=== PATIENT | female | born 1995 | race Caucasian/White ===

== ENCOUNTER 2021-03-12 22:26 | Emergency (ER) | payer OTHER, SELFPAY ==
[2021-03-12 22:30] VITALS: BP 129/70; PULSE 94; RESP 16; TEMP 36.4; O2SAT 100
[2021-03-12] MEDS: SODIUM CHLORIDE 0.9% IV 1,000 ML 999 ML IV CONT (23:17)
[2021-03-12 23:54] LABS: Add Urine Microscopic? YES; Appearance Urine Cloudy (Clear); Bacteria Urine Trace /hpf; Bilirubin Urine Negative (Negative); Blood Urine Negative (Negative); Color Urine Yellow (Yellow); Glucose Urine UA Negative (Negative); Ketones Urine Negative (Negative); Leukocyte Esterase Ur Negative LEU/UL (Negative); Mucus Urine Rare /lpf; Nitrate Urine Negative (Negative); Protein Urine Negative (Negative); RBC Urine 0-2 /hpf (0-2); Specific Grav Ur 1.015 (1.001-1.035); Squamous Epithelial Cell Urine Many /hpf (Few)
--- NOTE | 2021-03-13 00:43 | ED.GENADULT ---
HPI - General Adult General Chief complaint: Abdominal Pain Stated complaint: Abd cramping, 12 weeks preg Time Seen by Provider: 03/12/21 22:38 History of Present Illness HPI narrative: Patient is a 25-year-old female who is 12 weeks who presents with lower abdominal cramping. No leakage of fluid or vaginal bleeding. Denies urinary frequency urgency or dysuria. Reports cramping started this evening. She sees Dr. Mane. Concerned it could be related to the . Related Data Home Medications Medication Instructions Recorded Confirmed nitrofurantoin monohyd/m-cryst 110 mg PO BID 03/12/21 03/12/21 [Macrobid] Allergies Allergy/AdvReac Type Severity Reaction Status Date / Time amoxicillin Allergy Unknown Verified 03/12/21 22:33 Review of Systems Gastrointestinal: Gastrointestinal: Denies nausea and Denies vomiting Genitourinary: Genitourinary: Denies abnormal vaginal bleeding, Denies dysuria, Reports pelvic pain and Denies vaginal discharge PMF Past Medical History Medical History (Updated 03/13/21 @ 00:46 by Christian Lorenzo MD) Healthy female adult Surgical History Surgical History (Updated 03/13/21 @ 00:45 by Christian Lorenzo MD) No history of previous surgery Social History Social History (Updated 03/13/21 @ 00:45 by Christian Lorenzo MD) Alcohol intake: never Gender identity (if verbalized by the patient): Female Exam Narrative: Exam Narrative: GENERAL: Well-appearing, well-nourished, and in no acute distress. HEAD: Normocephalic, atraumatic. CHEST: Clear to auscultation. No respiratory distress. HEART: Regular rate and rhythm. Normal peripheral pulses. ABDOMEN: Soft, nontender, nondistended. EXTREMITIES: Normal range of motion. No edema. NEURO: Alert and oriented x3. PSYCH: Normal mood and affect. Course Course Emergency Course: Patient informed of results. Resting comfortably. Bedside ultrasound shows IUP with vigorous movement and positive heart tones. Cramping improved with fluids. Vital Signs Vital signs: Vital Signs Temperature 97.6 F 03/12/21 22:30 Pulse Rate 94 03/12/21 22:30 Respiratory Rate 16 03/12/21 22:30 Blood Pressure 129/70 03/12/21 22:30 Pulse Oximetry 100 03/12/21 22:30 Temperature 97.6 F 03/12/21 22:30 Pulse Rate 94 03/12/21 22:30 Respiratory Rate 16 03/12/21 22:30 Blood Pressure 129/70 03/12/21 22:30 Pulse Oximetry 100 03/12/21 22:30 Medical Decision Making Vital Signs Vital Signs: Vital Signs Temperature 97.6 F 03/12/21 22:30 Pulse Rate 94 03/12/21 22:30 Respiratory Rate 16 03/12/21 22:30 Blood Pressure 129/70 03/12/21 22:30 Pulse Oximetry 100 03/12/21 22:30 Temperature 97.6 F 03/12/21 22:30 Pulse Rate 94 03/12/21 22:30 Respiratory Rate 16 03/12/21 22:30 Blood Pressure 129/70 03/12/21 22:30 Pulse Oximetry 100 03/12/21 22:30 Lab Data Labs: Lab Results 03/12/21 Range/Units 23:43 Urine Color Yellow (Yellow) Urine Appearance Cloudy H (Clear) Urine pH 7.0 (5.0-9.0) Ur Specific [place] 1.015 (1.001-1.035) Urine Protein Negative (Negative) mg/dL Urine Glucose (UA) Negative (Negative) mg/dL Urine Ketones Negative (Negative) mg/dL Ur Blood (Man) Negative (Negative) Urine Nitrate Negative (Negative) Urine Bilirubin Negative (Negative) Urine Urobilinogen 2.0 H (<2.0) mg/dL Leukocyte Esterase Rfl Negative (Negative) BINDU/UL Urine RBC 0-2 (0-2) /hpf Urine WBC 4-6 H /hpf Ur Squamous Epith Cells Many H (Few) /hpf Urine Bacteria Trace /hpf Urine Mucus Rare /lpf UCG Bedside Result Positive Reference Range: Negative Discharge Plan Discharge Clinical Impression: Pelvic cramping Patient Disposition: Home, Self-Care Condition: Stable Instructions: Pelvic Pain (ED) Additional Instructions: Make sure to sta
[2021-03-13 00:54] VITALS: BP 123/76; PULSE 78; RESP 16; TEMP 36.8; O2SAT 98
== END 2021-03-13 00:55 | disposition home or self-care (01) ==
PROVIDERS: Emergency Provider Emergency Medicine; PCP Obstetrics & Gynecology
DX: R10.2 Pelvic and perineal pain (principal); O99.891 Other specified diseases and conditions complicating pregnancy; Z3A.12 12 weeks gestation of pregnancy
CPT/HCPCS: 81001; 81025; 96360; 99283; J7030

== ENCOUNTER 2021-06-17 10:34 | Observation (INO) | payer OTHER, SELFPAY ==
--- NOTE | ~2021-06-17 | US_ITS ---
EXAMINATION: US OB limited w BPP DATE: 06/17/2021 11:51 CDT INDICATION: Amniotic fluid leaking. Decreased movements. TECHNIQUE: Real-time transabdominal obstetric ultrasound. FINDINGS: No prior studies for comparison. There is a single living fetus in vertex presentation. The placenta is anterior without placenta pre via. RAMONA is normal measuring 19.7 cm. cardiac activity and movement is noted with a heart rate of 131 beats per minute. Biophysical profile: breathin of 2 movement: 2 of 2 tone: 2 of 2 Amniotic flud pocket: 2 of 2 Total score: 8 of 8 IMPRESSION: 1. Single living intrauterine in vertex presentation. 2: Total biophysical profile score of 8/8. 3: Normal RAMONA measures 19.7 cm. Reviewed, dictated and finalized at location A.
[2021-06-17 11:08] VITALS: BP 112/75; PULSE 96
[2021-06-17 11:17] VITALS: BMI 26.2
--- NOTE | 2021-06-17 11:17 | OBADM ---
This patient, Lupe Mae, admitted to the OB room OB Post 116 for observation. Patient/family oriented to hospital policies and general routines including ID bracelet, bed and alarms, visiting hours, pain management, procedures, bathroom and other care routines, personal items, smoking policy, room service/diet, and visiting hours. Patient/Family are encouraged to report perceived risks to care and to ask questions if they do not understand what they are told or what they should do.
[2021-06-17 12:00] LABS: Add Urine Microscopic? YES; Amorphous Sediment Urine Few; Appearance Urine Cloudy (Clear); Bacteria Urine Trace /hpf; Bilirubin Urine Negative (Negative); Blood Urine Negative (Negative); Color Urine Yellow (Yellow); Glucose Urine UA Negative (Negative); Ketones Urine Negative (Negative); Leukocyte Esterase Ur 2+ LEU/UL (Negative); Mucus Urine Rare /lpf; Nitrate Urine Negative (Negative); Protein Urine Negative (Negative); Specific Grav Ur 1.011 (1.001-1.035); Squamous Epithelial Cell Urine Many /hpf (Few); Urobilinogen Urine Negative mg/dL (<2.0)
--- NOTE | 2021-06-17 14:42 | PM.OBTRLD ---
OB - Triage/Final Diagnosis Visit Information Comments/Additional reasons for admission: I have assessed the risk for this patient, Lupe Mae, and determined that she would benefit from observation care. Evaluation Laboratory results: Laboratory Tests 06/17/21 11:07 Urine Color Yellow Urine Appearance Cloudy H Urine pH 7.0 Ur Specific [place] 1.011 Urine Protein Negative Urine Glucose (UA) Negative Urine Ketones Negative Ur Blood (Man) Negative Urine Nitrate Negative Urine Bilirubin Negative Urine Urobilinogen Negative Leukocyte Esterase Rfl 2+ H Urine RBC 3-5 H Urine WBC 4-6 H Ur Squamous Epith Cells Many H Amorphous Sediment Few H Urine Bacteria Trace Urine Mucus Rare Vital signs: Vital Signs - 24 hr 06/17/21 11:08 Pulse Rate 96 Blood Pressure 112/75 Final Diagnosis (1) Vaginal discharge during : Code(s): O26.899 - Other specified related conditions, unspecified trimester; N89.8 - Other specified noninflammatory disorders of vagina Status: Acute
== END 2021-06-17 12:15 | disposition home or self-care (01) ==
PROVIDERS: Admitting Provider Obstetrics & Gynecology; Visit Provider Obstetrics & Gynecology
DX: O26.892 Other specified pregnancy related conditions, second trimester (principal); N89.8 Other specified noninflammatory disorders of vagina; Z3A.24 24 weeks gestation of pregnancy
CPT/HCPCS: 76815; 76819; 81001; G0378; G0379

== ENCOUNTER 2021-06-20 10:35 | Outpatient (CLI) | payer OTHER, SELFPAY ==
--- NOTE | ~2021-06-20 | MR_ITS ---
EXAMINATION: MR pelvis wo con DATE: 06/20/2021 11:31 INDICATION: Bicornuate uterus affecting . TECHNIQUE: Magnetic resonance imaging (MRI) of the pelvis was performed without intravenous contrast. [place]field sequences of the pelvis included axial and coronal T2-weighted SS FSE, coronal 2D FIESTA, axial T1-weighted FSPGR, axial dual-echo T1-weighted FSPGR and axial T1 weighted LAVA. Small field o f view sequences included axial, sagittal and coronal T2-weighted FSE centered on the uterus and adne xa. COMPARISON: None. FINDINGS: Gravid uterus with single fetus in breech position. Diffuse is not diagnostically evaluated but appea rs unremarkable. Anterior placenta which is not low-lying with caudal margin 5 cm from the internal c ervical os. Normal cervical length of 3.8 cm. Only a single cervix is identified. No second uterine h orn identified. Bilateral kidneys are unremarkable with no hydronephrosis. Partially decompressed brigido dder is normal. Bilateral ovaries are unremarkable. Visualized portions of the liver, spleen and gabriel ls are unremarkable. No free fluid in the pelvis. No pathologically enlarged pelvic or inguinal lymph adenopathy. There is magnetic metallic field artifact at the upper lumbar and visualized lower thorac ic spine with appearance suggesting bilateral vertical cristi and pedicle screw fixation for posterior s gloria fusion extending from at least T11-L2. Bone marrow signal is unremarkable. IMPRESSION: 1. Gravid uterus with single fetus in breech position. 2. Uterus and cervix appear normal with no evident didelphys or other uterine developmental abnormali ty. Reviewed, dictated and finalized at location A. IMPRESSION: 1. Gravid uterus with single fetus in breech position. 2. Uterus and cervix appear normal with no evident didelphys or other uterine d evelopmental abnormality.
== END 2021-06-20 10:36 | disposition home or self-care (01) ==
LOC: ANHIMG 10:40
PROVIDERS: PCP Obstetrics & Gynecology Obstetrics; Visit Provider Obstetrics & Gynecology Obstetrics
DX: Q51.818 Other congenital malformations of uterus (principal)
CPT/HCPCS: 72195

== ENCOUNTER 2021-07-01 12:42 | Observation (INO) | payer OTHER, SELFPAY ==
--- NOTE | 2021-07-01 12:42 | OBADM ---
This patient, Lupe Mae, admitted to the OB room OB Post 111 for observation. Patient/family oriented to hospital policies and general routines including ID bracelet, bed and alarms, visiting hours, pain management, procedures, bathroom and other care routines, personal items, smoking policy, room service/diet, and visiting hours. Patient/Family are encouraged to report perceived risks to care and to ask questions if they do not understand what they are told or what they should do.
[2021-07-01 13:14] VITALS: BP 124/64; PULSE 98
[2021-07-01 13:29] VITALS: BP 115/65; PULSE 108
[2021-07-01 13:44] VITALS: BP 115/75; PULSE 103
--- NOTE | 2021-07-01 13:45 | PC.NURSE ---
Called Dr. Mane with pt status. Informed of pt complaining of pain on both sides of abdomen that gets tight. Abdomen palpated and fundus is soft. Side of abdomen feels tight occasionally. Pt states that she was not feeling movement, but now feels good movement. Pt has felt the tightening 3 times in 50 mins. Reactive tracing noted. Orders received.
[2021-07-01 14:26] LABS: Add Urine Microscopic? YES; Appearance Urine Cloudy (Clear); Bacteria Urine Trace /hpf; Bilirubin Urine Negative (Negative); Blood Urine Negative (Negative); Color Urine Yellow (Yellow); Glucose Urine UA Negative (Negative); Ketones Urine Negative (Negative); Leukocyte Esterase Ur 2+ LEU/UL (NEGATIVE); Mucus Urine Rare /lpf; Nitrate Urine Negative (Negative); Protein Urine Negative (Negative); Specific Grav Ur 1.008 (1.001-1.035); Squamous Epithelial Cell Urine Many /hpf (Few)
--- NOTE | 2021-07-01 14:30 | PC.NURSE ---
Called Dr. Mane with UA results. Orders received and pt may be D/C's home.
--- NOTE | 2021-07-01 14:49 | P.PNOB_ITS ---
OB - Triage/Final Diagnosis Visit Information Comments/Additional reasons for admission: I have assessed the risk for this patient, Lupe Mae, and determined that she would benefit from observation care. Evaluation Laboratory results: Laboratory Tests 07/01/21 14:05 Urine Color Yellow Urine Appearance Cloudy H Urine pH 7.0 Ur Specific [place] 1.008 Urine Protein Negative Urine Glucose (UA) Negative Urine Ketones Negative Ur Blood (Man) Negative Urine Nitrate Negative Urine Bilirubin Negative Urine Urobilinogen 2.0 H Ur Leukocyte Esterase 2+ H Urine RBC 3-5 H Urine WBC 10-15 H Ur Squamous Epith Cells Many H Urine Bacteria Trace Urine Mucus Rare Vital signs: Vital Signs - 24 hr 07/01/21 13:14 07/01/21 13:29 07/01/21 13:44 Pulse Rate 98 108 H 103 H Blood Pressure 124/64 115/65 115/75 Final Diagnosis (1) Pelvic pain affecting : Code(s): O26.899 - Other specified related conditions, unspecified trimester; R10.2 - Pelvic and perineal pain Status: Acute
[2021-07-01 15:39] VITALS: BMI 25.7
== END 2021-07-01 14:55 | disposition home or self-care (01) ==
PROVIDERS: Admitting Provider Obstetrics & Gynecology; PCP Obstetrics & Gynecology Obstetrics; Visit Provider Obstetrics & Gynecology
DX: O26.893 Other specified pregnancy related conditions, third trimester (principal); R10.2 Pelvic and perineal pain; Z3A.28 28 weeks gestation of pregnancy
CPT/HCPCS: 81001; 87077; 87086; 87088; 87186; G0378; G0379

== ENCOUNTER 2021-07-28 09:56 | Observation (INO) | payer OTHER, SELFPAY ==
[2021-07-28 10:11] VITALS: BP 126/76; PULSE 108
[2021-07-28 10:15] VITALS: BP 116/73; PULSE 106
[2021-07-28 10:30] VITALS: BP 117/69; PULSE 108
[2021-07-28 10:47] LABS: Add Urine Microscopic? YES; Appearance Urine Cloudy (Clear); Bacteria Urine Trace /hpf; Bilirubin Urine Negative (Negative); Blood Urine Negative (Negative); Color Urine Yellow (Yellow); Glucose Urine UA Negative (Negative); Ketones Urine Negative (Negative); Leukocyte Esterase Ur Negative LEU/UL (NEGATIVE); Nitrate Urine Negative (Negative); Protein Urine Negative (Negative); RBC Urine 0-2 /hpf (0-2); Specific Grav Ur 1.005 (1.001-1.035); Squamous Epithelial Cell Urine Occasional /hpf (Few); WBC Urine 0-3 /hpf (0-3)
--- NOTE | 2021-07-28 11:19 | PC.NURSE ---
called,informed pt came in c/o vaginal swelling and pressure. pt states she felt contractions yesterday and some today, none noted on monitor. UA is negative and vaginal swelling is noted as mild bilateral labial swelling with no redness. Orders received to discharge pt home.
[2021-07-28 11:26] VITALS: TEMP 36.9
--- NOTE | 2021-07-30 11:58 | P.PNOB_ITS ---
OB - Triage/Final Diagnosis Visit Information Reason for evaluation: threatened labor Comments/Additional reasons for admission: I have assessed the risk for this patient, Lupe Mae, and determined that she would benefit from observation care. Evaluation Laboratory results: Laboratory Tests 07/28/21 10:31 Urine Color Yellow Urine Appearance Cloudy H Urine pH 6.0 Ur Specific [place] 1.005 Urine Protein Negative Urine Glucose (UA) Negative Urine Ketones Negative Ur Blood (Man) Negative Urine Nitrate Negative Urine Bilirubin Negative Urine Urobilinogen 2.0 H Ur Leukocyte Esterase Negative Urine RBC 0-2 Urine WBC 0-3 Ur Squamous Epith Cells Occasional Urine Bacteria Trace
== END 2021-07-28 11:30 | disposition home or self-care (01) ==
PROVIDERS: Admitting Provider Obstetrics & Gynecology; PCP Obstetrics & Gynecology Obstetrics; Visit Provider Obstetrics & Gynecology
DX: O47.03 False labor before 37 completed weeks of gestation, third trimester (principal); Z3A.31 31 weeks gestation of pregnancy
CPT/HCPCS: 81001; 87077; 87086; 87088; 87186; G0378; G0379

== ENCOUNTER 2021-08-02 09:49 | Outpatient (RCR) | payer OTHER, SELFPAY ==
[2021-07-22 10:16] VITALS: BP 110/66; PULSE 101
[2021-08-02 10:25] VITALS: BP 112/67; PULSE 98
== END 2021-10-06 09:27 | disposition home or self-care (01) ==
LOC: ANHOBOP 09:49
PROVIDERS: PCP Obstetrics & Gynecology Obstetrics; Visit Provider Obstetrics & Gynecology
DX: O36.8130 Decreased fetal movements, third trimester, not applicable or unspecified (principal); Z3A.31 31 weeks gestation of pregnancy; Z3A.32 32 weeks gestation of pregnancy
CPT/HCPCS: 59025

== ENCOUNTER 2021-08-16 11:43 | Observation (INO) | payer OTHER, SELFPAY ==
--- NOTE | 2021-08-16 11:43 | OBADM ---
This patient, Lupe Mae, admitted to the OB room OB Post 112 for observation. Patient/family oriented to hospital policies and general routines including ID bracelet, bed and alarms, visiting hours, pain management, procedures, bathroom and other care routines, personal items, smoking policy, room service/diet, and visiting hours. Patient/Family are encouraged to report perceived risks to care and to ask questions if they do not understand what they are told or what they should do.
[2021-08-16 12:10] VITALS: BMI 27.5
[2021-08-16 12:15] VITALS: BP 112/69; PULSE 97
[2021-08-16 12:30] VITALS: BP 118/75; PULSE 94
[2021-08-16 12:36] LABS: Add Urine Microscopic? YES; Appearance Urine Cloudy (Clear); Bacteria Urine Trace /hpf; Bilirubin Urine Negative (Negative); Blood Urine Negative (Negative); Color Urine Yellow (Yellow); Glucose Urine UA Negative (Negative); Ketones Urine Negative (Negative); Leukocyte Esterase Ur Trace LEU/UL (NEGATIVE); Nitrate Urine Negative (Negative); Protein Urine Negative (Negative); Squamous Epithelial Cell Urine Many /hpf (Few); Urobilinogen Urine Negative mg/dL (<2.0)
[2021-08-16 12:42] LABS: Specific Grav Ur 1.004 (1.001-1.035)
[2021-08-16 12:45] VITALS: BP 117/87; PULSE 108
[2021-08-16 13:00] VITALS: BP 109/69; PULSE 94
[2021-08-16 13:15] VITALS: BP 116/65; PULSE 97
[2021-08-16 13:30] VITALS: BP 112/70; PULSE 98
--- NOTE | 2021-08-16 14:15 | PC.NURSE ---
Dr Mane office notified that patient left before discharge instructions were given. Patient was not informed that she needs weekly NST's. Office will notify patient.
--- NOTE | 2021-08-20 08:39 | PM.OBTRLD ---
OB - Triage/Final Diagnosis Visit Information Comments/Additional reasons for admission: I have assessed the risk for this patient, Lupe Mae, and determined that she would benefit from observation care. Evaluation Laboratory results: Laboratory Tests 08/16/21 12:08 Urine Color Yellow Urine Appearance Cloudy H Urine pH 6.0 Ur Specific [place] 1.004 Urine Protein Negative Urine Glucose (UA) Negative Urine Ketones Negative Ur Blood (Man) Negative Urine Nitrate Negative Urine Bilirubin Negative Urine Urobilinogen Negative Ur Leukocyte Esterase Trace H Urine RBC 3-5 H Urine WBC 4-6 H Ur Squamous Epith Cells Many H Urine Bacteria Trace Final Diagnosis (1) Pelvic pain affecting : Code(s): O26.899 - Other specified related conditions, unspecified trimester; R10.2 - Pelvic and perineal pain Status: Acute
== END 2021-08-16 14:15 | disposition home or self-care (01) ==
PROVIDERS: Admitting Provider Obstetrics & Gynecology; Visit Provider Obstetrics & Gynecology
DX: O26.893 Other specified pregnancy related conditions, third trimester (principal); R10.2 Pelvic and perineal pain; Z3A.34 34 weeks gestation of pregnancy
CPT/HCPCS: 81001; 87077; 87086; 87088; 87186; G0378; G0379

== ENCOUNTER 2021-08-25 13:10 | Outpatient (RCR) | payer OTHER, SELFPAY ==
[2021-08-11 11:54] VITALS: BP 111/67; PULSE 123
[2021-08-19 10:15] VITALS: BP 108/63; PULSE 103
[2021-08-22 14:11] VITALS: BP 109/73; PULSE 120
--- NOTE | ~2021-08-25 | US_ITS ---
EXAMINATION: US OB limited w BPP EXAM DATE: 08/11/2021 11:31 INDICATION: RAMONA; SGA and variable decel SGA, variable decels. 3rd trimester. TECHNIQUE: Pelvic obstetrical transabdominal sonogram was performed by a technologist. There are mu ltiple grayscale and Doppler images available for interpretation. Comparison is made to prior examina tion from 06/17/2021. FINDINGS: There is a single fetus identified in vertex presentation with a heart rate of 171 beats pe r minute. The placenta is located in the anterior position. There is no sonographic evidence of retr oplacental hemorrhage identified. The amniotic fluid index is 12.7 centimeters, which is normal. BIOPHYSICAL PROFILE (performed by the technologist) breathing (30 sec sustained breathing in 30 minutes): 2 out of 2 movement (3 gross body movements in 30 minutes): 2 out of 2 tone (one episode of gncngwd-dtuoqolys-iailkbm limb movement): 2 out of 2 Amniotic fluid pocket (2 cm): 2 out of 2 Total score: 8 out of 8 IMPRESSION: 1. Single fetus with heart rate of 171 bpm. 2. Normal biophysical profile score of 8 out of 8. Reviewed, dictated and finalized at location B. ICER
--- NOTE | ~2021-08-25 | US_ITS ---
EXAMINATION: US OB BPP wo non-stress DATE: 08/22/2021 14:10 MARKETING AUTOMATION MANAGER INDICATION: Small for gestational age. TECHNIQUE: Real-time transabdominal obstetric ultrasound. FINDINGS: No prior studies for comparison. There is a single living fetus in breech presentation. The placenta is anterior without placenta pre via. cardiac activity and movement is noted with a heart rate of 129 beats per minute. Biophysical profile: breathin of 2 movement: 2 of 2 tone: 2 of 2 Amniotic flud pocket: 2 of 2 Total score: 8 of 8 IMPRESSION: 1. Single living intrauterine in breech presentation. 2: Total biophysical profile score of 8/8. Reviewed, dictated and finalized at location B. ETING AUTOMATION MANAGER
--- NOTE | ~2021-08-25 | US_ITS ---
EXAMINATION: US OB BPP wo non-stress DATE: 08/25/2021 14:23 SUCCESS COACH INDICATION: Small for gestational age TECHNIQUE: Real-time transabdominal obstetric ultrasound. FINDINGS: 08/22/2021 There is a single living fetus in vertex presentation. The placenta is anterior without placenta pre via. cardiac activity and movement is noted with a heart rate of 139 beats per minute. Biophysical profile: breathin of 2 movement: 2 of 2 tone: 2 of 2 Amniotic flud pocket: 2 of 2 Total score: 8 of 8 IMPRESSION: 1. Single living intrauterine in vertex presentation. 2: Total biophysical profile score of 8/8. Reviewed, dictated and finalized at location B. ESS COACH
--- NOTE | 2021-08-25 13:43 | WPDANESPN ---
Anes - Prog Note Post-Op Date/Time: 08/25/21 13:43 Vital Signs: Last Vital Signs Pulse 120 H 08/22/21 14:11 BP 109/73 08/22/21 14:11 Pain Score (VAS): 0 Patient Feedback: Evaluated patient here for an NST to determine what her options were for anesthesia due to her spinal hardware. She had scoliosis and has pins/rods on what she describes as most of her spine. A recent MRI indicates hardware from upper thoracic down to at least the L2 level . There is scar tissue going down to the L4 or L5 level. I told the patient a labor epidural is not a feasible option unfortunately due to the extensiveness of the hardware, however if a C section were to happen, we can attempt a spinal.
[2021-08-25 14:25] VITALS: BP 121/73; PULSE 113
== END 2021-09-22 13:18 | disposition home or self-care (01) ==
LOC: ANHOBOP 13:10
PROVIDERS: Visit Provider Obstetrics & Gynecology
DX: O36.5930 Maternal care for other known or suspected poor fetal growth, third trimester, not applicable or unspecified (principal); Z3A.33 33 weeks gestation of pregnancy; Z3A.35 35 weeks gestation of pregnancy
CPT/HCPCS: 59025; 76815; 76819

== ENCOUNTER 2021-08-26 09:50 | Observation (INO) | payer OTHER, SELFPAY ==
[2021-08-26 11:33] LABS: Add Urine Microscopic? NO; Appearance Urine Clear (Clear); Bilirubin Urine Negative (Negative); Blood Urine Negative (Negative); Color Urine Yellow (Yellow); Glucose Urine UA Negative (Negative); Ketones Urine Negative (Negative); Leukocyte Esterase Ur Negative LEU/UL (NEGATIVE); Nitrate Urine Negative (Negative); Protein Urine Negative (Negative); Urobilinogen Urine Negative mg/dL (<2.0)
[2021-08-26 11:45] LABS: Specific Grav Ur 1.003 (1.001-1.035)
[2021-08-26 12:31] VITALS: BMI 27.5
--- NOTE | 2021-08-30 12:18 | PM.OBTRLD ---
OB - Triage/Final Diagnosis Visit Information Comments/Additional reasons for admission: I have assessed the risk for this patient, Lupe Mae, and determined that she would benefit from observation care. Evaluation Laboratory results: Laboratory Tests 08/26/21 11:22 Urine Color Yellow Urine Appearance Clear Urine pH 7.0 Ur Specific [place] 1.003 Urine Protein Negative Urine Glucose (UA) Negative Urine Ketones Negative Ur Blood (Man) Negative Urine Nitrate Negative Urine Bilirubin Negative Urine Urobilinogen Negative Ur Leukocyte Esterase Negative Final Diagnosis (1) Pelvic pain affecting : Code(s): O26.899 - Other specified related conditions, unspecified trimester; R10.2 - Pelvic and perineal pain Status: Acute
== END 2021-08-26 12:25 | disposition home or self-care (01) ==
PROVIDERS: Admitting Provider Obstetrics & Gynecology; Visit Provider Obstetrics & Gynecology
DX: O26.893 Other specified pregnancy related conditions, third trimester (principal); R10.2 Pelvic and perineal pain; Z3A.36 36 weeks gestation of pregnancy
CPT/HCPCS: 81003; 84112; 87077; 87086; 87088; 87186; G0378; G0379

== ENCOUNTER 2021-09-05 17:57 | Inpatient (IN) | payer OTHER, SELFPAY ==
[2021-09-05] VITALS (9 sets, daily range): BP systolic 110–118; BP diastolic 68–76; PULSE 83–102; RESP 16; TEMP 36.8; BMI 27.5
--- OUTSIDE RECORDS SUMMARY | 2021-09-05 18:03 | XMS_ITS | Encounter Summary ---
:1995 Author Reason for Visit return OB visit Assessment and Plan 1. Routine care ? glucose tolerance test, ge stational, 1-hour ? CBC ? HIV (1+2) Ab screen, serum Discussion Note: None recorded.Patient educational handouts: No information available. Plan of Care Reminders Provider Appointments Established Arpan Mane, Patient 15 09/07/2021 4:15PM ? Procedure 15 Manoj Mane, 09/11/2021 4:00PM Lab Glucose [place] [facility] Tolerance Test, 07/14/2021 [facility] (Lab) Gestational, 1-Hour ? Cbc [place] [facility] 07/14/2021 [facility] (Lab) ? HIV (1+2) Ab [facility] [address] Regional Screen, Serum 07/14/2021 [facility] (Lab) Referral None recorded. ? ? Procedures None recorded. ? ? Surgeries None recorded. ? ? Imaging None recorded. ? ? Medications Name Start Date ? ? Vitamin 27 mg iron-0.8 mg tablet ? TAKE 1 TABLET BY MOUTH ONCE DAILY Medications Administered None
--- OUTSIDE RECORDS SUMMARY | 2021-09-05 18:03 | XMS_ITS | Encounter Summary ---
:1995 Author Reason for Visit return OB visit Assessment and Plan 1. growth restriction Discussion Note: None recorded.Patient educational handouts: No information available. Plan of Care Reminders Provider Appointments Established Arpan Mane, Patient 15 09/07/2021 4:15PM ? Procedure 15 Manoj Mane, 09/11/2021 4:00PM Lab None recorded. ? ? Referral None recorded. ? ? Procedures None recorded. ? ? Surgeries None recorded. ? ? Imaging None recorded. ? ? Medications Name Start Date ? ? Vitamin 27 mg iron-0.8 mg tablet ? TAKE 1 TABLET BY MOUTH ONCE DAILY Medications Administered None recorded. Vitals Weight Blood Pressure 151.2 lbs 102/72 mm[Hg] Results Lab Results None recorded. Allergies Code Code System Name Reaction Severity Onset NKDA ? ? ? Problems Name Status Onset Date Source ? Active 02/10/2021 ? Procedures Date Name
--- OUTSIDE RECORDS SUMMARY | 2021-09-05 18:03 | XMS_ITS | Encounter Summary ---
:1995 Author Reason for Visit return OB visit Assessment and Plan 1. Routine care ? streptococcus group B, cul ture, vaginal or rectal Discussion Note: None recorded.Patient educational handouts: No information available. Plan of Care Reminders Provider Appointments Established Arpan Mane, Patient 15 09/07/2021 4:15PM ? Procedure 15 Manoj Mane, 09/11/2021 4:00PM Lab Streptococcus Gat [facility] Group B, Culture, Vaginal [facility]/2021 [facility] (Lab[facility] or Rectal Referral None recorded. ? ? Procedures None recorded. ? ? Surgeries None recorded. ? ? Imaging None recorded. ? ? Medications Name Start Date ? ? Vitamin 27 mg iron-0.8 mg tablet ? TAKE 1 TABLET BY MOUTH ONCE DAILY Medications Administered None recorded. Vitals Weight Blood Pressure 155 lbs 107/64 mm[Hg] Results Lab Results Date Name Specimen Result Interpretation Description Value Range Status Address ? 09/01/2021 Streptococcus SOURCE NOT ? Strep Gp negative neg ative Final [facility]: Group B, INDICATED B [id number] Culture, [id number]
--- OUTSIDE RECORDS SUMMARY | 2021-09-05 18:03 | XMS_ITS ---
:1995 Author Care Team Providers Name Role Phone AlhajiAdelia Primary Care Provider Unavailable Allergies Code Code System Name Reaction Severity Status Onset NKDA ? Medications Name Status Start Date Stop Date ? ? cephalexin 500 mg capsule Completed ? 2020 TK ONE C PO Q 6 H FOR 10 DAYS Classic 28 mg iron-800 mcg tablet Completed ? 02/24/2021 TAKE 1 TABLET BY MOUTH ONCE DAILY escitalopram 10 mg tablet Completed ? 2020 TK 1 T PO QD hydroxyzine HCl 25 mg tablet Completed ? 02/2021 TK 1 T PO Q 8 H PRN magnesium oxide 400 mg (241.3 mg magnesium) tablet Completed ? 04/22/2021 TAKE 1 (ONE) TABLET BY MOUTH ONCE DAILY REASONS HEADACHE PROPHY LAXIS naproxen 500 mg tablet Completed ? TK 1 T PO BID WF nitrofurantoin monohydrate/macrocrystals 100 mg capsule Complete d ? 04/22/2021 TAKE 1 CAPSULE BY MOUTH EVERY 12 HOURS FOR 7 DAYS Vitamin 27 mg iron-0.8 mg tablet Active ? Not available TAKE 1 TABLET BY MOUTH ONCE DAILY Problems Name Status Onset Date Source ? Active 02/10/2021 ? Procedures Date Name Performed by ? ? Operation on Spinal Cord Information not available Notes: sclerosis repair 01/27/2021 US, Obstetric, 1St Trimester [place] [facility] (Imaging) [address] [facility]
--- OUTSIDE RECORDS SUMMARY | 2021-09-05 18:03 | XMS_ITS | Encounter Summary ---
[...] Administered None recorded. Vitals Weight Blood Pressure 147 lbs 100/70 mm[Hg] Results Lab Results None recorded. Allergies Code Code System Name Reaction Severity Onset NKDA ? ? ? Problems Name Status Onset Date Source ? Active 02/10/2021 ? Procedures Date Name
--- NOTE | 2021-09-05 18:41 | LDADM ---
This patient, Lupe Mae, was admitted to Labor/Delivery/Recovery 109 on 09/05/21 at 17:57. Plans for labor, pain management and were discussed with patient. Patient/family oriented to hospital policies and general routines including ID bracelet, bed and alarms, visiting hours, pain management, procedures, bathroom and other care routines, personal items, smoking policy, room service/diet and guest tray routines, infant security routines, and visiting hours. Patient/Family are encouraged to report perceived risks to care and to ask questions if they do not understand what they are told or what they should do. See OBIX for further documentation.
[2021-09-05] MEDS: BETAMETHASONE SOD PHOS/ACETATE 30 MG/5 ML VIAL 12 MG IM (19:18)
[2021-09-05 19:19] LABS: Basophils Percent Auto 0.2 % (0.2-1.2); Eosinophils Absolute Auto 0.1 K/mm3 (0-0.3); Eosinophils Percent Auto 0.7 % (0-4.4); Hematocrit 38.9 % (37.0-47.0); Hemoglobin 13.1 g/dL (12.0-15.0); Immature Granulocyte Absolute 0.11 K/mm3 (0.00-0.031); Immature Granulocyte Percent A 0.8 % (0-0.5); Lymphocytes Absolute Auto 2.01 K/mm3 (0.9-3.2); Lymphocytes Percent Auto 14.6 % (18.3-44.2); Mean Corpuscular HGB Conc 33.7 g/dl (32-36); Mean Corpuscular Hemoglobin 29.7 pg (26-34); Mean Corpuscular Volume 88.2 fl (80-100); Mean Platelet Volume 10.7 fl (7.4-10.4); Monocytes Absolute Auto 0.7 K/mm3 (0.1-0.6); Monocytes Percent Auto 5.2 % (2.6-8.5); Neutrophils Absolute Auto 10.8 K/mm3 (1.3-6.7); Neutrophils Percent Auto 78.5 % (45.5-73.1); Platelet Count Result 301 k/mm3 (150-375); Red Blood Count 4.41 M/mm3 (4.2-5.4); Red Cell Distribution Width 12.2 % (11.5-14.5); White Blood Count 13.8 K/mm3 (4.5-10.0)
[2021-09-05] MEDS: DINOPROSTONE 10 MG VAG INSERT VAGINAL (19:22)
[2021-09-05 20:14] LABS: HIV 1/2 Ab P24 Ag Result Negative (Negative)
[2021-09-06] VITALS (69 sets, daily range): BP systolic 86–132; BP diastolic 49–113; PULSE 25–125; RESP 12–18; TEMP 36.5–37.2; O2SAT 83–100
[2021-09-06 07:05] LABS: Rapid Plasma Reagin Non-Reactive (NonReactive)
[2021-09-06] MEDS: LACTATED RINGERS 1,000 ML 125 ML IV CONT (07:26)
--- NOTE | 2021-09-06 07:26 | PM.IMHP ---
H&P: HPI History of Present Illness Date/Time: 09/06/21 07:02 Lupe is a 25yo @ 36.2wks (RO 10/02/21) who presented to L&D for induction of labor. She has been following with [facility] regularly for IUGR and was found to have minimal growth over the last 2 weeks (3 oz). She has had regular care. She was admitted overnight for cervidil. Her is complicated by: - Severe IUGR - H/o scoliosis surgery w/ rods in spine - h/o kidney infections outside of - Arcuate uterus (normal variant) Chief Complaint: induction of labor Review of Systems Review of Systems: All systems reviewed & are unremarkable except as noted in HPI and below (HPI) PMFSH Past Medical History Medical History Healthy female adult Surgical History Surgical History No history of previous surgery Family History Family History Mother Hypertension Grandparent Hypertension Congestive heart failure Social History Social History Smoking status: Never smoker Second hand tobacco smoke exposure: No Alcohol intake: never Substance use: never Gender identity (if verbalized by the patient): Female Spiritual care concerns: No Meds Home Medications and Allergies Home Medications Medication Instructions Recorded Confirmed Type Vitamin 1 tablet PO DAILY 08/11/21 08/25/21 History Allergies Allergy/AdvReac Type Severity Reaction Status Date / Time amoxicillin Allergy Unknown Verified 03/12/21 22:33 Vital Signs Vital Signs - 24 hr 09/05/21 19:27 09/05/21 19:30 09/05/21 19:45 Temperature 36.8 C Pulse Rate 102 H 99 97 Respiratory Rate 16 Blood Pressure 117/76 118/74 113/76 09/05/21 20:00 09/05/21 20:15 09/05/21 20:30 Temperature Pulse Rate 95 102 H 91 Respiratory Rate Blood Pressure 118/72 111/71 110/71 09/05/21 20:45 09/05/21 21:00 09/05/21 21:15 Temperature Pulse Rate 89 83 97 Respiratory Rate Blood Pressure 115/68 110/68 118/73 09/06/21 00:00 09/06/21 01:23 09/06/21 01:24 Temperature 36.7 C Pulse Rate 95 93 Respiratory Rate Blood Pressure 117/65 109/69 09/06/21 03:56 09/06/21 05:19 Temperature 36.9 C Pulse Rate 87 100 Respiratory Rate Blood Pressure 102/63 116/69 Exam Const: General: cooperative, healthy appearing, comfortable and no acute distress Resp: Effort & Inspection: normal respiratory effort Cardio: Rate: regular rate GI: Inspection: non-distended GI Palp: No abdominal tenderness and Yes Soft to palpation : Other: FHT's: 130's/ mod jesu/ + accels/ no decels - cat 1 TOCO; ctx q 2min Cervix: /-3 Membranes: intact Presentation: cephalic Skin: General skin exam: normal color Neuro: General: oriented to person Extrem: General: normal to inspection Psych: Appearance: grossly normal Affect: normal affect Attitude: cooperative H&P: Results Labs Labs: Short CBC 09/05/21 Range/Units 19:00 WBC 13.8 H (4.5-10.0) K/mm3 Hgb 13.1 (12.0-15.0) g/dL Hct 38.9 (37.0-47.0) % Plt Count 301 (150-375) k/mm3 Assessment and Plan Assessment and plan (1) IUGR (intrauterine growth restriction): Status: Acute (2) Encounter for induction of labor: Code(s): Z34.90 - Encounter for supervision of normal , unspecified, unspecified trimester Status: Acute Additional Plan - Admitted overnight for cervidil IOL - Cervix w/ minimal change; herndon balloon placed at 0720 w/ 40cc of fluid - Low dose pitocin - Continuous monitoring - Pain control w/ fentanyl - GBS negative - s/p betamethasone on admission; repeat dose in 24 hrs if still
--- NOTE | 2021-09-06 07:26 | WPDHPUPDATE1 ---
History and Physical Update Update Date/Time: 09/06/21 07:26 History and Physical has been reviewed, including an updated exam of the patient. There are NO changes in the patient's condition. Risks, benefits, and alternatives have been discussed and questions answered. Patient agrees to proceed with procedure.
[2021-09-06] MEDS: OXYTOCIN 30 UNITS/NS 500 ML 30 UNITS/500 ML BAG 6 UNITS IV CONT (07:27)
[2021-09-06] MEDS: fentaNYL CITRATE INJ (*CRX) 100 MCG/2 ML VIAL IV PUSH ×4 (07:54→12:30)
--- NOTE | 2021-09-06 12:00 | PM.OBPNLAB ---
Pain Control Date/time seen: 09/06/21 12:00 Pain control: narcotic analgesia Comments: reports pain is 8/10, requesting epidural Pelvic Exam Dilation (cm): 1 (.5) Effacement (%): 60 station: -3 Amniotic membrane status: Intact Contractions Monitor mode: External Contraction frequency: 2 Contraction pattern: Regular Contraction intensity: Moderate Status status: Category l Assessment and Plan Pitocin rate (mU/min): 6 Comments: - Pt unable to have epidural due to rods - Pt is s/p cervidil w/ minimal change; did not tolerate herndon balloon and it was removed in less than 30 minutes after insertion - Pt at this point is requesting section as she does not think she can tolerate labor - Pt has made minimal change; now 1.5cm - Risks and benefits of discussed in detail; reports this will be her only and accepts the risks of - Anesthesia consulted and agrees that pt can have single shot spinal
--- NOTE | 2021-09-06 14:33 | WPDANESEPP ---
Anes - Eval Pre Procedure Procedure: Operation Date: 09/06/21 15:00 Proposed Procedures p Section - Adelia Mane MD Date/Time: 09/06/21 14:33 Surgeon: Dr. Mane Pre Op Diagnosis: Elective C/S Patient Data Age: 25 Gender: F Height: 1.6 m Weight: 70.5 kg Last Vital Signs Temp 37.1 C 09/06/21 09:30 Pulse 103 H 09/06/21 14:15 Resp 16 09/05/21 19:27 BP 117/74 09/06/21 14:15 Allergies Allergy/AdvReac Type Severity Reaction Status Date / Time amoxicillin Allergy Unknown Verified 03/12/21 22:33 Home Medications Medication Instructions Recorded Confirmed Type Vitamin 1 tablet PO DAILY 08/11/21 08/25/21 History Laboratory Tests 09/05/21 09/05/21 09/05/21 19:00 19:00 19:00 WBC 13.8 K/mm3 H K/mm3 (4.5-10.0) RBC 4.41 M/mm3 M/mm3 (4.2-5.4) Hgb 13.1 g/dL g/dL (12.0-15.0) Hct 38.9 % % (37.0-47.0) MCV 88.2 fl fl (80-100) MCH 29.7 pg pg (26-34) MCHC 33.7 g/dl g/dl (32-36) RDW 12.2 % % (11.5-14.5) Plt Count 301 k/mm3 k/mm3 (150-375) MPV 10.7 fl H fl (7.4-10.4) Immature Gran % (Auto) 0.8 % H % (0-0.5) Neut % (Auto) 78.5 % H % (45.5-73.1) Lymph % (Auto) 14.6 % L % (18.3-44.2) [place] % (Auto) 5.2 % % (2.6-8.5) Eos % (Auto) 0.7 % % (0-4.4) Baso % (Auto) 0.2 % % (0.2-1.2) Lymph # (Auto) 2.01 K/mm3 K/mm3 (0.9-3.2) [place] # (Auto) 0.7 K/mm3 H K/mm3 (0.1-0.6) Eos # (Auto) 0.1 K/mm3 K/mm3 (0-0.3) Baso # (Auto) 0.0 K/mm3 K/mm3 (0.0-0.1) Abs Immat Gran (auto) 0.11 K/mm3 H K/mm3 (0.00-0.031) Absolute Neuts (auto) 10.8 K/mm3 H K/mm3 (1.3-6.7) Absolute Nucleated RBC 0.0 K/mm3 K/mm3 (0.0-0.012) Nucleated RBC % 0.0 % % (0.0-0.2) RPR Non-reactive (NonReactive) HIV 1&2 Ab/P24 Ag 4thGn Blood Type O Positive Antibody Screen Negative 09/05/21 19:00 WBC RBC Hgb Hct MCV MCH MCHC RDW Plt Count MPV Immature Gran % (Auto) Neut % (Auto) Lymph % (Auto) [place] % (Auto) Eos % (Auto) Baso % (Auto) Lymph # (Auto) [place] # (Auto) Eos # (Auto) Baso # (Auto) Abs Immat Gran (auto) Absolute Neuts (auto) Absolute Nucleated RBC Nucleated RBC % RPR HIV 1&2 Ab/P24 Ag 4thGn Negative (Negative) Blood Type Antibody Screen Patient hx anesthesia problems: none Family hx anesthesia problems: none Results Review: All pre-operative results and documents have been reviewed as part of the pre-operative evaluation. [facility] Past Medical History Medical History Healthy female adult Surgical History Surgical History (Updated 09/06/21 @ 14:37 by Kyler Yepez CRNA) No history of previous surgery [place] Family History Family History Mother Hypertension Grandparent Hypertension Congestive heart failure Social History Social History Smoking status: Never smoker Second hand tobacco smoke exposure: No Alcohol intake: never Substance use: never Gender identity (if verbalized by the patient): Female Spiritual care concerns: No Exam Day of Procedure 09/06/21 14:33 Patient weight: overweight Heart: regular rate and rhythm Lungs: clear to auscultation and normal air movement Airway: Mallampati scale class II Neurological: alert and oriented
[2021-09-06] MEDS: ceFAZolin 2 GM/D5W 50 ML 2 GM/50 ML BAG IVPB (15:06)
--- NOTE | 2021-09-06 15:47 | WPDANESEFPP ---
Anes - Eval Final PreProcedure Day of Procedure 09/06/21 15:47 Patient weight: overweight Heart: regular rate and rhythm Lungs: clear to auscultation Airway: Mallampati scale class II Neurological: alert and oriented Last oral intake: >/= 8 hours ASA classification: II Emergent: no Anesthetic plan: proceed Anesthesia type and monitoring: regional spinal and standard monitoring Results Review: All pre-operative results and documents have been reviewed as part of the pre-operative evaluation. Informed Consent: The patient's anesthetic plan and its attendant risks and benefits were discussed with the patient/family/POA. Questions were solicited and answers provided to the satisfaction of the patient/family/POA.
--- NOTE | 2021-09-06 16:22 | PM.OBPRVD ---
OB - Delivery Note Procedure Delivery date: 09/06/21 Procedure: Procedures Operation Date: 09/06/21 15:00 <No data on this case meets the specified criteria> events: Labor Induction (severe IUGR) Intrapartal events: Other (maternal request ) Induction method: per cervidil protocol Delivery monitor: external FHT Route of delivery: Quantitative Blood Loss (ml): 535 Anesthesia type: Spinal Disposition: PACU Baby Date of : 09/06/21 Time of : 15:38 Weeks of gestation at delivery: 36 (.3) gender: Female Weight (pounds): 4 Weight (ounces): 7 presentation: vertex position: Right Occiput Transverse Placenta delivery description: Expressed cord vessel description: 3 Vessels score one minute: 8 score five minutes: 9 Narrative: She was counseled on all risks and benefits in detail. She was taken to the operating room where spinal was placed and found to be adequate. She was then prepped and draped in the normal sterile fashion. She received 2g Ancef and a time out was performed. A Pfannenstiel incision was made in the skin and carried down to the underlying fascia. The fascia was nicked on either side of the midline and the fascial incision was extended laterally and superiorly. The fascia was then elevated and the underlying rectus muscles were dissected off the fascia, superiorly and inferiorly. The rectus muscles were then in the midline and the peritoneum was entered bluntly. Once adequate exposure was obtained, a Mobius self retractor was placed within the abdomen. A bladder flap was created. A low transverse incision was made on the lower uterine segment and clear fluid was noted. The occiput was brought to the hysterotomy and the head was easily delivered. The shoulder and body then followed without complications. The had spontaneous cry and the mouth and nose were bulb suctioned. The cord was clamped and cut and the infant was handed off to the awaiting pediatric nurse. A segment of the cord was collected for cord gases. The remaining cord blood was collected for typing. With pitocin infusing, the placenta delivered with gentle traction on the cord without complications. The uterus was then cleared out of all clots and debris using a clean, moist lap. The hysterotomy was then repaired in a running fashion using 0 Vicryl. A second layer imbricating suture was then made using 0 Vicryl. The hysterotomy was found to be hemostatic and good uterine tone was noted. The bilateral adnexa were examined and found to be normal. The pelvis was cleared of all clots and fluid. The Mobius retractor was removed from the abdomen. The peritoneum, muscle, and fascia were examined and made hemostatic with bovie cautery. The fascia was then repaired using a 0 Vicryl suture in a running fashion. The subcutaneous tissue was then irrigated and made hemostatic with bovie cautery. The subcutaneous tissue was then reapproximated using 2-0 Vicryl. The skin was then closed using 4-0 Monocryl in a running subcuticular fashion. Sponge, lap, needle and instrument counts were correct at the end of the procedure x2. The patient tolerated the procedure well and was taken to recovery in a stable condition.
[2021-09-06] MEDS: KETOROLAC 30 MG/ML VIAL (*BKC) IV PUSH ×2 (17:36→22:11)
[2021-09-06] MEDS: HYDROmorphone HCL INJ (*CRX) 1 MG/ML SYR 0.5 MG IV PUSH (18:12)
--- NOTE | 2021-09-06 18:57 | PC.NURSE ---
Patient transferred to post room #280 via stretcher. Support person present. Oriented to unit, room, information board, rooming in, admission packet and security measures. Patient verbalizes understanding.
[2021-09-06] MEDS: HYDROcodone/acetaminophen (*CRX) 10-325 MG TABLET 1 TAB PO (22:12)
[2021-09-06] MEDS: DEXTROSE 5%/0.45% SOD CHL 1,000 ML 125 ML IV CONT (23:44)
[2021-09-07 00:45] VITALS: BP 118/65; PULSE 98; RESP 16; TEMP 36.6; O2SAT 100
[2021-09-07] MEDS: HYDROcodone/acetaminophen (*CRX) 10-325 MG TABLET 1 TAB PO ×6 (01:11→21:50)
[2021-09-07 04:00] VITALS: BP 95/63; PULSE 81; RESP 16; TEMP 36.2; O2SAT 100
[2021-09-07] MEDS: IBUPROFEN 600 MG TABLET PO ×3 (04:04→17:45)
[2021-09-07 05:19] LABS: Basophils Absolute Auto 0.1 K/mm3 (0.0-0.1); Basophils Percent Auto 0.2 % (0.2-1.2); Eosinophils Percent Auto 0.1 % (0-4.4); Hematocrit 35.8 % (37.0-47.0); Hemoglobin 11.6 g/dL (12.0-15.0); Immature Granulocyte Absolute 0.14 K/mm3 (0.00-0.031); Immature Granulocyte Percent A 0.7 % (0-0.5); Lymphocytes Absolute Auto 1.87 K/mm3 (0.9-3.2); Lymphocytes Percent Auto 9.2 % (18.3-44.2); Mean Corpuscular HGB Conc 32.4 g/dl (32-36); Mean Corpuscular Hemoglobin 29.9 pg (26-34); Mean Corpuscular Volume 92.3 fl (80-100); Mean Platelet Volume 11.1 fl (7.4-10.4); Monocytes Percent Auto 4.9 % (2.6-8.5); Neutrophils Absolute Auto 17.3 K/mm3 (1.3-6.7); Neutrophils Percent Auto 84.9 % (45.5-73.1); Platelet Count Result 281 k/mm3 (150-375); Red Blood Count 3.88 M/mm3 (4.2-5.4); Red Cell Distribution Width 12.3 % (11.5-14.5); White Blood Count 20.4 K/mm3 (4.5-10.0)
[2021-09-07] MEDS: MULTIVIT/MIN/PREN/FOL AC/IRON TABLET 1 TAB PO (08:17)
[2021-09-07] MEDS: DOCUSATE SODIUM 100 MG CAPSULE PO ×2 (08:17→17:45)
[2021-09-07 09:15] VITALS: BP 116/69; PULSE 91; RESP 18; TEMP 36.8; O2SAT 100
[2021-09-07 12:10] VITALS: BP 99/64; PULSE 71; RESP 16; TEMP 36.4; O2SAT 100
--- NOTE | 2021-09-07 12:20 | P.PNOB_ITS ---
OB - PN: Subj Subjective Date/time seen: 09/07/21 12:15 POD#1 Lupe reports doing well today. She reports she is having incisional pain but controlled with PO meds. She reports her bleeding is light. She ordered lunch. She has ambulated w/o symptoms of anemia. Herndon catheter was removed but she did not have spontaneous void; bladder scanner showed ~1000cc of urine in her bladder. Herndon catheter was replaced with 1,100cc out. She has not passed gas. She is bottle feeding. She denies CP, SOB, HAN, vision changes, fever, chills, N/V, dizziness or palpitations. OB - PN: Obj Data Labs CBC & Chem 7: 09/07/21 03:50 Labs: Laboratory Results - last 24 hr 09/07/21 03:50 WBC 20.4 H RBC 3.88 L Hgb 11.6 L Hct 35.8 L MCV 92.3 MCH 29.9 MCHC 32.4 RDW 12.3 Plt Count 281 MPV 11.1 H Immature Gran % (Auto) 0.7 H Neut % (Auto) 84.9 H Lymph % (Auto) 9.2 L [place] % (Auto) 4.9 Eos % (Auto) 0.1 Baso % (Auto) 0.2 Lymph # (Auto) 1.87 [place] # (Auto) 1.0 H Eos # (Auto) 0.0 Baso # (Auto) 0.1 Abs Immat Gran (auto) 0.14 H Absolute Neuts (auto) 17.3 H Absolute Nucleated RBC 0.0 Nucleated RBC % 0.0 OB - PN A/P Assessment and Plan (1) Status post primary low transverse section: Code(s): Z98.891 - History of uterine scar from previous surgery Status: Acute Plan day: 1 Plan: routine care Comments: - herndon to remain in place until tomorrow AM Time Spent With Patient Time: Total time spent is greater than 50% in coordination of care (as documented) at patient's floor/unit and/or counseling patient: Review of Systems Review of Systems: All systems reviewed & are unremarkable except as noted in HPI and below (HPI) Exam Const: General: cooperative, healthy appearing, comfortable and no acute distress Resp: Effort & Inspection: normal respiratory effort Auscultation: clear to auscultation bilaterally Cardio: Rate: regular rate GI: Inspection: non-distended and incision (covered w/ clean dressing) GI Palp: No abdominal tenderness and Yes Soft to palpation Auscultation: normal bowel sounds : Other: fundus firm Urinary Catheter: Urinary Catheter: patent and draining and urine clear Skin: General skin exam: normal color Neuro: General: patient oriented x3 Extrem: General: normal to inspection Psych: Appearance: grossly normal Affect: normal affect Attitude: cooperative
[2021-09-07 19:17] VITALS: BP 97/56; PULSE 99; RESP 18; TEMP 36.5; O2SAT 99
[2021-09-08] MEDS: IBUPROFEN 600 MG TABLET PO ×2 (04:50→12:56)
[2021-09-08] MEDS: HYDROcodone/acetaminophen (*CRX) 5-325 MG TABLET 1 TAB PO ×2 (04:50→12:56)
--- NOTE | 2021-09-08 07:00 | PC.NURSE ---
PT introductions made and plan of care discussed per post c section, pain management daily care activities bottle feeding, and pending discharge home. PT received instructions and care per one to one discussion, mom baby care guide and demonstrations. PT sole recipient of such instructions and no barriers to learning identified at this time. Pt verbalized understanding of such care. PT requests to be discharged today if possible.
[2021-09-08 08:00] VITALS: BP 114/61; PULSE 78; RESP 16; TEMP 36.5; O2SAT 99
[2021-09-08] MEDS: SIMETHICONE 80 MG TAB.CHEW PO (09:57)
[2021-09-08] MEDS: DOCUSATE SODIUM 100 MG CAPSULE PO (09:57)
[2021-09-08] MEDS: HYDROcodone/acetaminophen (*CRX) 10-325 MG TABLET 1 TAB PO (09:57)
[2021-09-08 10:00] VITALS: PULSE 78; RESP 16; O2SAT 99
--- NOTE | 2021-09-08 11:56 | PM.OBPNVD ---
OB - PN: Subj Subjective Date/time seen: 09/08/21 11:50 POD#2 Lupe reports doing well today. She reports she is having incisional pain but controlled with PO meds. She reports her bleeding is light. She has tolerated regular diet, ambulated w/o symptoms of anemia, and passed gas. Pastor catheter was removed at 9am; has not tried to void yet. She is bottle feeding. She would like to go home today. She denies CP, SOB, HAN, vision changes, fever, chills, N/V, dizziness or palpitations. OB - PN: Obj Data Labs CBC & Chem 7: 09/07/21 03:50 OB - PN A/P Assessment and Plan (1) Status post primary low transverse section: Code(s): Z98.891 - History of uterine scar from previous surgery Status: Acute Plan day: 2 Plan: routine care and discharge home Comments: - discharge home this afternoon if spontaneous void occurs - f/u in 2 weeks for incision check - pelvic rest, no heavy lifting, incision care discussed - ER return precautions: n/v/abd pain, HTN, bleeding, fever Time Spent With Patient Time: Total time spent is greater than 50% in coordination of care (as documented) at patient's floor/unit and/or counseling patient: Review of Systems Review of Systems: All systems reviewed & are unremarkable except as noted in HPI and below (HPI) Exam Const: General: cooperative, healthy appearing, comfortable and no acute distress Resp: Effort & Inspection: normal respiratory effort Auscultation: clear to auscultation bilaterally Cardio: Rate: regular rate GI: Inspection: normal to inspection and incision (covered with clean dressing) GI Palp: No abdominal tenderness and Yes Soft to palpation Auscultation: normal bowel sounds : Other: fundus firm Skin: General skin exam: normal color Neuro: General: patient oriented x3 Extrem: General: normal to inspection Psych: Appearance: grossly normal Affect: normal affect Attitude: cooperative
[2021-09-08] MEDS: TETANUS,DIPHTHERIA,AC PERTUSSIS ADULT (0.5 ML) BOOSTRIX IM (12:57)
--- NOTE | 2021-09-08 17:00 | PC.NURSE ---
PT received discharge instructions per protocol and verbalized understanding of such care
--- NOTE | 2021-09-08 17:20 | PC.NURSE ---
PT discharged to home ambulatory accompanied by fob and infant and walked to waiting car. Follow up appts confirmed
[2021-09-10 10:54] VITALS: BP 120/69; PULSE 80; RESP 16; TEMP 36.8; O2SAT 100
--- NOTE | 2021-09-14 19:04 | PM.OBDSVD ---
DS: Admitting Diagnosis Discharge Date 09/08/21 Admitting Diagnosis induction of labor IUGR DS: Discharge Diagnosis Discharge Diagnosis (1) Status post primary low transverse section: Code(s): Z98.891 - History of uterine scar from previous surgery Status: Acute (2) IUGR (intrauterine growth restriction): Status: Acute OB - DS: Summary OB Procedures : NST and Ultrasound OB Procedures Intrapartum: low cervical, transverse OB Procedures: : None Peripartum Data Delivery Method: Section (maternal request) Procedures: Procedures Operation Date: 09/06/21 15:00 Actual Procedure Side Surgeon p Section Adelia Mane MD complications: none [place] 1: Gender: Female Disposition of : home Status at Discharge Functional status at discharge: independent ambulation Overall status at discharge: patient is back to baseline Time Spent with Patient Time attestation: Total time spent providing and/or coordinating discharge services: Time spent: Less than 30 minutes Exam Const: General: cooperative, healthy appearing, comfortable and no acute distress Resp: Effort & Inspection: normal respiratory effort Auscultation: clear to auscultation bilaterally Cardio: Rate: regular rate GI: Inspection: normal to inspection, non-distended and incision (with clean dressing) GI Palp: No abdominal tenderness and Yes Soft to palpation Auscultation: normal bowel sounds : Other: fundus firm Skin: General skin exam: normal color Neuro: General: patient oriented x3 Extrem: General: normal to inspection Psych: Appearance: grossly normal Affect: normal affect Attitude: cooperative DS: Data Data Completed and Pending Completed studies during hospitalization: Pending at discharge 09/06/21 16:30 Surgical [PTH] Routine Discharge Plan Discharge Attending physician on discharge: Adelia Mane Consulting providers: Tanner Tejeda Discharging Clinician: Adelia Mane Anticipated Discharge Date/Time: 09/08/21 16:00 Patient Disposition: Home, Self-Care Activity: pelvic rest Diet: regular Discharge Instructions: Education: Mom and Baby Guide Given to: Mother Follow-Up: Call your delivering provider's office for an appointment to be seen in: 1 Week Mom and baby should come to the [facility] for the follow-up appointment. Appointment Date/Time: September 10, 2021 at 11:00 am What to expect at your follow-up visit: Blood Pressure Check Call [phone] if you are unable to keep your appointment time. BREAST CARE: * Wear a snug supportive bra. * For engorgement discomfort: Bottle Feeding: * May apply ice packs ABDOMINAL INCISION: (if applicable) * Allow incision to air dry * Do NOT use lotions for powders on your incision * When showering, allow soap and water to run over the incision, but do not wash incision PERINEAL CARE: * Until bleeding stops, use your mckenzie bottle after urinating * Change your pad frequently throughout the day * No tub baths until seen by your physician - You may shower ACTIVITY: * Rest as much as possible. * Do not exercise or lift anything heavier than your baby (such as laundry or other children.) * Avoid stairs or driving as much as possible. * Do not put anything into the vagina. No douching, tampons, or sexual activity until seen by physician. NOTIFY PHYSICIAN IF YOU HAVE ANY QUESTIONS OR IF ANY OF THE FOLLOWING SYMPTOMS OCCUR: * If your incision becomes red, swollen, or more painful than what you have experienced in the hospital. * If your vaginal bleeding becomes foul smelling. * If your vaginal bleeding becomes more heavy than a period or if your bleeding changes from pink to bright red. However, you may pass an occasional walnut-sized clot once or twice for the first week .
== END 2021-09-08 17:20 | disposition home or self-care (01) | DRG 540 ==
LOC: ANHLDR 09-06 14:35 → ANHOB2 09-06 19:01
PROVIDERS: Admitting Provider Obstetrics & Gynecology; Visit Provider Obstetrics & Gynecology
PROC: 10D00Z1 Extraction of Products of Conception, Low, Open Approach (ICD-10-PCS; CPT 59514; principal; 2021-09-06 15:00)
DX: O36.5930 Maternal care for other known or suspected poor fetal growth, third trimester, not applicable or unspecified (principal); O34.03 Maternal care for unspecified congenital malformation of uterus, third trimester; Q51.810 Arcuate uterus; Z3A.36 36 weeks gestation of pregnancy; Z37.0 Single live birth; M41.9 Scoliosis, unspecified; Z96.698 Presence of other orthopedic joint implants
CPT/HCPCS: 36415; 85025; 86592; 86703; 86850; 86900; 86901; 88307; 90715; A9270; G0432; J0131; J0690; J0702; J1100; J1170; J1885; J2274; J2405; J2590; J3010; J7120